=== PATIENT | female | born 1995 | race African-American/Black ===

== ENCOUNTER 2022-06-17 22:27 | Emergency (ER) | payer BC ==
[~2022-06-17] VITALS: Ht 167.6 cm; Wt 49.8 kg
[2022-06-17 22:35] VITALS: BP 145/95
== END 2022-06-18 02:16 | disposition left against medical advice (07) ==
LOC: ER 22:27
DX: Z53.21 Procedure and treatment not carried out due to patient leaving prior to being seen by health care provider (principal)